=== PATIENT | female | born 1975 | race Caucasian/White ===

== ENCOUNTER 2024-12-04 18:21 | Observation (INO) | payer OTHER, SELFPAY ==
[2024-11-30 21:00] VITALS: BMI 40.1
[2024-12-04 19:35] VITALS: BP 250/129; PULSE 94; RESP 18; TEMP 36.6; O2SAT 100; BMI 39.2
[2024-12-04 22:06] VITALS: BP 229/109
[2024-12-04 22:07] VITALS: PULSE 93
--- NOTE | 2024-12-04 22:23 | ED.GENADULT ---
HPI - General Adult General Chief complaint: Hypertension Stated complaint: BP through roof here earlier this week Time Seen by Provider: 12/04/24 22:21 Source: patient, RN notes reviewed and old records reviewed Mode of arrival: Ambulatory Limitations: no limitations History of Present Illness HPI narrative: 49-year-old female with hypertension was seen on 11/30/2024 patient was admitted for hypertensive emergency please do not narcotic pain and discharged home on amlodipine 5 mg b.i.d. patient states she is having similar symptoms has not elevated blood pressure. Has been taking her amlodipine although did not have her evening dose. She states she has had shortness of breath with the exertion which she states is worse than when she came in earlier in the week. She has a little bit of a moderate headache to the back of her head. Chest pressure with exertion. No some nausea but no vomiting. No syncope. Bowel movements has been a little bit loose. No urinary symptoms. She did not note a red lump along vessel in her arm which is new since her hospitalization just adjacent to where she had her IV placed. She states not the worse headache of her life, she states she bacterial meningitis age 19 and states that was the worst headache of her life. She notes was not on any daily medications prior to this. From only has a history of and tubal ligation. Reports allergy to Vicodin. Quit tobacco on mother's day, no alcohol, no recreational drugs. Was drinking too rock breaker caffeine drinks daily and stopped this with her hospitalization. She does not have a primary care physician. Related Data Previous Rx's ?Medication ?Instructions ?Recorded amlodipine 5 mg tablet 5 mg PO BID #60 tabs 12/01/24 Allergies Allergy/AdvReac Type Severity Reaction Status Date / Time acetaminophen (From Vicodin) AdvReac Intermediate Nausea Verified 11/30/24 22:02 hydrocodone (From Vicodin) AdvReac Intermediate Nausea Verified 11/30/24 22:02 Review of Systems Review of Systems ROS Unobtainable: All systems reviewed & are unremarkable except as noted in HPI and below Patient History Social History household members: spouse Exam Narrative Exam Narrative: GEN: well nourished, well appearing female, alert and oriented x 3, patient appears to be in mild distress. HEENT: Atraumatic, pupils are equal round reactive to light, extraocular movements are intact, nares are clear, there is no conjunctival pallor. Throat is clear without any exudates, erythema, tonsillar enlargement or uvular deviation, no facial droop HEART: Regular rate and rhythm without murmur, clicks, rubs. No carotid bruits, pulses are equal in upper and lower extremities LUNGS:Lungs clear to auscultation, no wheezes, rales, crackles, chest moves symmetrically ABD:bowel sounds normal, soft, non-tender, no guarding, rebound, rigidity, no masses noted, no hepatosplenomegaly :No CVA tenderness MSCL: Non-tender, no muscle atrophy, muscles strength 5/5 upper and lower extremities, full range of motion. NEURO:CN 2-12 intact, sensation normal Initial Vital Signs Initial Vital Signs: Vital Signs Temperature 98 F 12/04/24 19:35 Pulse Rate 94 H 12/04/24 19:35 Respiratory Rate 18 12/04/24 19:35 Blood Pressure 250/129 H 12/04/24 19:35 Pulse Oximetry 100 12/04/24 19:35 Oxygen Delivery Method Room Air 12/04/24 19:35 Course Orders Ordered: ED Orders 12/04/24 22:20 BNP [NT-proBNP (BNP-Adult 18+)] Stat Complete Blood Count AUTO DIFF Stat Comprehensive Metabolic Panel Stat Lipase Stat Troponin & CK Cardiac Panel Stat 12/04/24 22:25 XR chest 1V Stat EKG-12 Lead Stat 12/04/24 22:33 CT head/brain wo con Stat 12/04/24 22:35 US periph venous up extrem rt Stat Acetaminophen (Acetaminophen 325 Mg Tablet) 650 mg PO Q6H PRN PRN Reason: Fever/Mild Pain (1-3) Hydrocodone Bitart/Acetaminophen (Hydrocodone/Acet 5/325 Tablet) 1 tab PO Q4H PRN PRN Reason: Pain, Moderate (4-6) Calcium Carbonate (Calcium Carbonate 500 Mg Tab) 1,000 mg PO Q4HR PRN PRN Reason: Dyspepsia Clonidine HCl (Clonidine 0.1 Mg Tablet) 0.2 mg PO BID JANEEN Enoxaparin Sodium (Enoxaparin 40 Mg/0.4 Ml Syringe) 40 mg SUBCUT DAILY JANEEN Furosemide (Furosemide 40 Mg/4 Ml Vial) 40 mg IV Q12HR JANEEN Hydralazine HCl (Hydralazine 20 Mg/Ml Vial) 10 mg IV Q6HR PRN PRN Reason: Hypertension Sodium Chloride (Normal Saline 0.9%) 1,000 mls @ 150 mls/hr IV CONT JANEEN Last Admin: 12/04/24 22:56 Dose: 150 mls/hr Documented By: ERIC Naloxone HCl (Naloxone 0.4 Mg/Ml Vial) 0.2 mg IV Q2MIN PRN PRN Reason: Opiate Reversal Ondansetron HCl (Ondansetron 4 Mg/2 Ml Inj) 4 mg IV Q8HR PRN PRN Reason: Nausea And Vomiting Sennosides (Sennosides 8.6 Mg Tablet) 17.2 mg PO BEDTIME [facility] Discontinued Medications Amlodipine Besylate (Amlodipine 5 Mg Tablet) 10 mg PO NOW ONE Stop: 12/04/24 22:36 Last Admin: 12/04/24 22:56 Dose: 10 mg Documented By: ERIC Vital Signs Vital signs: Vital Signs - 8 hr 12/04/24 19:35 12/04/24 22:06 12/04/24 22:07 Temperature 98 F Pulse Rate 94 H 93 H Respiratory Rate 18 Blood Pressure 250/129 H 229/109 H Pulse Oximetry 100 Oxygen Delivery Method Room Air 12/04/24 22:30 12/04/24 22:30 12/04/24 23:00 Temperature Pulse Rate 78 87 Respiratory Rate 20 21 Blood Pressure 232/102 H Pulse Oximetry 98 Oxygen Delivery Method 12/04/24 23:30 12/05/24 00:00 12/05/24 00:30 Temperature Pulse Rate 86 78 86 Respiratory Rate 25 H 22 23 Blood Pressure Pulse Oximetry 99 97 97 Oxygen Delivery Method 12/05/24 00:45 12/05/24 00:45 12/05/24 01:00 Temperature Pulse Rate 80 92 H Respiratory Rate 18 22 Blood Pressure 194/88 H Pulse Oximetry 98 96 Oxygen Delivery Method 12/05/24 01:00 Temperature Pulse Rate Respiratory Rate Blood Pressure 196/87 H Pulse Oximetry Oxygen Delivery Method Medical Decision Making Lab Data 12/04/24 22:20 12/04/24 22:20 Labs: Lab Results 12/04/24 Range/Units 22:20 WBC 8.4 (4.5-11.0) X10^3/uL RBC 5.42 H (4.0-5.2) X10^6/uL Hgb 11.5 L (12.0-16.0) g/dL Hct 35.9 L (36-46) % MCV 66.3 L (80-100) fL MCH 21.2 L (26-34) PG MCHC 31.9 (30-36) % RDW 18.9 H (11.6-14.8) % Plt Count 338 (150-400) X10^3/uL Neut % (Auto) 57.9 (50-75) % Lymph % (Auto) 30.4 (25-40) % [place] % (Auto) 6.1 (3-14) % Eos % (Auto) 4.2 H (2-4) % Baso % (Auto) 1.4 (0-2) % Neut # (Auto) 4800 (6480-1319) /uL Lymph # (Auto) 2500 (4203-9438) /uL [place] # (Auto) 500 (0-900) /uL Eos # (Auto) 400 (0-450) /uL Baso # (Auto) 100 (0-100) /uL Platelet Estimate Adequate on smear RBC Morphology See below Hypochromasia 1+ H Anisocytosis 1+ H Microcytosis 2+ H Macrocytosis 1+ H Sodium 135 L (137-145) mmol/L Potassium 4.0 (3.4-5.1) mmol/L Chloride 104 (98-107) mmol/L Carbon Dioxide 18 L (22-32) mmol/L BUN 14 (7-17) mg/dL Creatinine 0.51 L (0.52-1.04) mg/dL Estimated GFR > 60 (>60) mL/min BUN/Creatinine Ratio 27.5 H (6-22) Glucose 183 H (70-99) mg/dL Calcium 9.5 (8.4-10.2) mg/dL Total Bilirubin 0.6 (0.2-1.3) mg/dL AST 40 H (14-36) IU/L ALT 35 H (<35) IU/L Alkaline Phosphatase 95 (38-126) U/L Total Creatine Kinase 65 (30-135) U/L Troponin I < 0.012 (0.01-0.034) ng/mL NT-Pro-B Natriuret Pep 20 (<125) pg/mL Total Protein 7.6 (6.3-8.2) g/dL Albumin 4.5 (3.5-5.0) g/dL Globulin 3.1 (1.7-4.1) g/dL Albumin/Globulin Ratio 1.5 (1.0-2.8) Lipase 120 (23-300) U/L MDM Narrative Medical decision making narrative: Labs show white count 8.4 hemoglobin is 11.5 was 9.9 on 12/01/2024, microcytic platelets of 338. Coags are negative. Chemistries mild changes with CO2 18 sodium is 135 creatinine is 0.51 glucose is 183 LFTs show AST of 40 ALT of 35 bilirubin is 0.6 alk-phos is 95 lipase is 120. Troponins less than 0.012 with a BNP of less than 20. Head CT shows no acute change Chest x-ray shows no acute change Right upper extremity ultrasound, superficial venous thrombosis in the proximal basilic vein in the forearm. No findings of upper DVT. Patient had fluids and amlodipine, patient's blood pressure 194/88 on rechecked but was consistently 250 to 230s. 25% reduction would be 188/97. Call out to Dr. Ramesh [phone] for hypertensive urgency/emergency, spoke with Dr. Ramesh @ [phone] accepts for observation. We will continue with oral medication at this time hold off on nicardipine drip as she seems to be responding. Discharge Plan Departure Patient Disposition: Admitted as Observation Clinical Impression: Hypertensive urgency Admit Date/Time: 12/05/24 01:23 Admit Provider: Vinicius Ramesh
--- NOTE | 2024-12-04 22:25 | EKG_ITS ---
[place] [id number] [place] [id number] Test Date: 2024-12-05 Pat Name: Marilee Dubon Department: [facility] Room: 90A Gender: Female Motivational Speaker: JS : 1975 Requested By: Order Number: [id number] Reading MD: Farrukh Andrews Measurements Intervals [place] Rate: 78 P: 33 MS: 146 QRS: -3 QRSD: 82 T: 66 QT: 400 QTc: 456 Interpretive Statements Normal sinus rhythm Nonspecific T wave abnormality Electronically Signed On 12-07-2024 16:54:04 PDT by Farrukh Andrews
--- NOTE | 2024-12-04 22:25 | DI.RAD.S_ITS ---
PROCEDURE: XR CHEST 1V INDICATIONS: hypertension TECHNIQUE: One view of the chest was acquired. COMPARISON: [facility], CR, XR CHEST 1V, 11/30/2024, 16:24. FINDINGS: Surgical changes and devices: None. Lungs and pleura: Lungs are clear. No pleural effusions or pneumothorax. Mediastinum: Mediastinal contours appear normal. Heart size is normal. Bones and chest wall: No suspicious bony lesions. Overlying soft tissues appear unremarkable. IMPRESSION: No acute cardiopulmonary abnormality is seen. Dictated by: Foster Franklin M.D. on 12/04/2024 at 22:55 Approved by: Foster Franklin M.D. on 12/04/2024 at 22:55
[2024-12-04 22:30] VITALS: BP 232/102; PULSE 78; RESP 20
--- NOTE | 2024-12-04 22:33 | DI.CT.S_ITS ---
PROCEDURE: CT HEAD/BRAIN WO CON INDICATIONS: htn, moderate shetty TECHNIQUE: Noncontrast 4.5 mm thick angled axial sections acquired from the foramen magnum to the vertex, with coronal and sagittal reformats. For radiation dose reduction, the following was used: automated exposure control, adjustment of mA and/or kV according to patient size. COMPARISON: None. FINDINGS: Image quality: Diagnostic. CSF spaces: Basal cisterns are patent. No extra-axial fluid collections. Ventricles are normal in size and shape. Brain: No midline shift. No intracranial mass effect or hemorrhage. Stewart- white matter interface is normal. Skull and face: Calvarium and visualized facial bones are intact, without suspicious lesions. Sinuses: Visualized sinuses and mastoids are clear. IMPRESSION: No acute intracranial pathology. Dictated by: Foster Franklin M.D. on 12/04/2024 at 23:12 Approved by: Foster Franklin M.D. on 12/04/2024 at 23:13
--- NOTE | 2024-12-04 22:35 | DI.US.S_ITS ---
PROCEDURE: US PERIPH VENOUS UP EXTREM RT INDICATIONS: phlebitis RUarm, r/o dvt TECHNIQUE: Real-time imaging, as well as color and pulse Doppler interrogation, was performed of the upper extremity deep veins from the inferior neck to the antecubital fossa. COMPARISON: None. FINDINGS: The internal jugular vein, visualized portions of the subclavian vein, axillary, and brachial veins are free of intraluminal thrombus. Where physically possible, the veins are normally compressible. Color and pulse Doppler demonstrate normal intraluminal flow, with expected phasicity and pulsatility. Superficial venous thrombosis within the proximal basilic vein of the forearm. IMPRESSION: Superficial venous thrombosis within the proximal basilic vein of the forearm. No findings of upper extremity deep venous thrombosis can be seen. Dictated by: Foster Franklin M.D. on 12/05/2024 at 0:25 Approved by: Foster Franklin M.D. on 12/05/2024 at 0:26
[2024-12-04 22:38] LABS: Add Manual Diff / Slide Review NO; Hematocrit 35.9 % (36-46); Hemoglobin 11.5 g/dL (12.0-16.0); Lymphocytes Absolute Auto 2500 /uL (1100-4500); Mean Corpuscular HGB Conc 31.9 % (30-36); Mean Corpuscular Hemoglobin 21.2 PG (26-34); Mean Corpuscular Volume 66.3 fL (80-100); Platelet Count 338 X10^3/uL (150-400)
[2024-12-04 22:49] LABS: Alanine Aminotransferase 35 IU/L (<35); Albumin 4.5 g/dL (3.5-5.0); Albumin Globulin Ratio 1.5 (1.0-2.8); Alkaline Phosphatase 95 U/L (38-126); Blood Urea Nitrogen 14 mg/dL (7-17); Calcium 9.5 mg/dL (8.4-10.2); Carbon Dioxide 18 mmol/L (22-32); Chloride 104 mmol/L (98-107); Creatine Kinase 65 U/L (30-135); Estimated Glomerular Filt Rate > 60 mL/min (>60); Globulin 3.1 g/dL (1.7-4.1); Glucose 183 mg/dL (70-99); HEMOLYSIS 28 (0-50); Lipase 120 U/L (23-300); Potassium 4.0 mmol/L (3.4-5.1); Sodium 135 mmol/L (137-145); Total Protein 7.6 g/dL (6.3-8.2)
[2024-12-04] MEDS: SODIUM CHLORIDE 0.9% 1,000 ML 150 ML IV (22:56)
[2024-12-04 23:00] VITALS: PULSE 87; RESP 21; O2SAT 98
[2024-12-04 23:01] LABS: NT-proBNP (BNP-Adult 18+) 20 pg/mL (<125); Troponin I < 0.012 ng/mL (0.01-0.034)
[2024-12-04 23:24] LABS: Anisocytosis 1+; Hypochromasia 1+; Macrocytosis 1+; Microcytosis 2+
[2024-12-04 23:30] VITALS: PULSE 86; RESP 25; O2SAT 99
[2024-12-05] VITALS (42 sets, daily range): BP systolic 137–237; BP diastolic 64–129; PULSE 73–141; RESP 11–33; TEMP 36.6–37.1; O2SAT 96–99; BMI 39.2; BMI 38.6
[2024-12-05 03:47] LABS: Appearance Urine UA CLEAR; Bilirubin Urine UA NEGATIVE (NEGATIVE); Color Urine UA YELLOW; Glucose Urine UA NEGATIVE (Negative); Ketones Urine UA TRACE (NEGATIVE); Leukocyte Esterase Urine UA NEGATIVE (NEGATIVE); Nitrite Urine UA NEGATIVE (Negative); Occult Blood Urine UA NEGATIVE (Negative); Protein Urine UA NEGATIVE (Negative); Specific Gravity Urine UA <=1.005 (1.000-1.035); Urobilinogen Urine UA 0.2 E.U./dL (0.2)
[2024-12-05 03:52] LABS: UR Morphine/Opiate cutoff 300 Negative (Negative); Ur Specific Gravity Normal (Normal); Urine MDMA Negative (Negative); Urine Methamphetamines Negative (Negative); Urine Tetrahydrocannabinol Positive (Negative); Urine Tricyclic Antidepressant Negative (Negative)
[2024-12-05 04:09] LABS: pH Urine UA 6.0 (4.5-8.0)
[2024-12-05 04:10] LABS: Culture Indicated Urine Cult Not Indicated
[2024-12-05] MEDS: hydrALAZINE 20 MG/ML VIAL 10 MG IV (04:13)
--- NOTE | 2024-12-05 04:40 | PC.NURSE ---
Pt declining maintenance IVF at this time; wants to try to sleep without having to use the bathroom so frequently.
[2024-12-05 05:42] LABS: Add Manual Diff / Slide Review NO; Hematocrit 32.5 % (36-46); Hemoglobin 10.5 g/dL (12.0-16.0); Lymphocytes Absolute Auto 2000 /uL (1100-4500); Mean Corpuscular HGB Conc 32.1 % (30-36); Mean Corpuscular Hemoglobin 21.3 PG (26-34); Mean Corpuscular Volume 66.3 fL (80-100); Platelet Count 317 X10^3/uL (150-400)
--- NOTE | 2024-12-05 05:44 | PC.NURSE ---
pt ambulatory to the br, became dyspneic and tachycardic, HR in 130s. pt states this last week she has been becoming increasingly SOB with walking short distances and can feel her heart racing when she becomes SOB,
[2024-12-05 05:55] LABS: Blood Urea Nitrogen 13 mg/dL (7-17); Calcium 8.5 mg/dL (8.4-10.2); Carbon Dioxide 20 mmol/L (22-32); Chloride 106 mmol/L (98-107); Cholesterol 173 mg/dL (140-199); Estimated Glomerular Filt Rate > 60 mL/min (>60); Glucose 168 mg/dL (70-99); HDL Cholesterol 54 mg/dL (40-60); HEMOLYSIS < 15 (0-50); Hemoglobin A1C% w Est Avg Glu 7.4 % (4.0-6.0); Magnesium 1.6 mg/dL (1.6-2.3); Potassium 3.4 mmol/L (3.4-5.1); Sodium 136 mmol/L (137-145); Triglycerides 196 mg/dL (35-150)
[2024-12-05 06:04] LABS: NT-proBNP (BNP-Adult 18+) 22 pg/mL (<125)
[2024-12-05 06:17] LABS: Anisocytosis 1+; Hypochromasia 1+; Macrocytosis 1+; Microcytosis 1+
--- NOTE | 2024-12-05 06:24 | P.HP_ITS ---
History of Present Illness History of Present Illness Date Patient Seen: 12/05/24 Time Patient Seen: 04:00 Chief complaint: BP through roof here earlier this week Narrative: The pt is a 49 yo who was admitted to our hospital from -12/01 for HTN urgency and was sent home on 5mg of Norvasc. She reports she went home and slept for 20 hours and then woke up with BP of >200. She has been checking her BP every 2-4 hours at home around the clock. Patricia c/o OLIVAS, dull generalized, no focal weakness, no confused, no trouble with speech, no CP or pressure but she was very tearful when describing how she can feel the high blood pressure in my neck pulsing. She does not smoke, no ETOH, no change in supplements or diet remedies, no stress at home but she reports a 25 weight gain inthe past week. During my visit her BP was 205/93, PFSH Social History household members: spouse Meds Home Medications and Allergies Home Medications ?Medication ?Instructions ?Recorded ?Confirmed ?Type amlodipine 5 mg tablet 5 mg PO BID #60 tabs 5 Rx Allergies Allergy/AdvReac Type Severity Reaction Status Date / Time acetaminophen (From Vicodin) AdvReac Intermediate Nausea Verified 11/30/24 22:02 hydrocodone (From Vicodin) AdvReac Intermediate Nausea Verified 11/30/24 22:02 Exam Vital Signs (past 8 hours): - 12/04/24 22:30 12/04/24 22:30 12/04/24 23:00 Pulse Rate 78 87 Respiratory Rate 20 21 Blood Pressure 232/102 H Pulse Oximetry 98 12/04/24 23:30 12/05/24 00:00 12/05/24 00:30 Pulse Rate 86 78 86 Respiratory Rate 25 H 22 23 Blood Pressure Pulse Oximetry 99 97 97 12/05/24 00:45 12/05/24 00:45 12/05/24 01:00 Pulse Rate 80 92 H Respiratory Rate 18 22 Blood Pressure 194/88 H Pulse Oximetry 98 96 12/05/24 01:00 12/05/24 01:30 12/05/24 01:30 Pulse Rate 78 Respiratory Rate 17 Blood Pressure 196/87 H 185/85 H Pulse Oximetry 97 12/05/24 02:00 12/05/24 02:00 12/05/24 02:45 Pulse Rate 82 84 Respiratory Rate 22 14 Blood Pressure 192/92 H Pulse Oximetry 97 98 12/05/24 02:46 12/05/24 02:46 12/05/24 03:00 Pulse Rate 79 100 H Respiratory Rate 15 26 H Blood Pressure 205/93 H Pulse Oximetry 98 99 12/05/24 03:00 12/05/24 03:30 12/05/24 03:50 Pulse Rate 87 84 Respiratory Rate 14 11 L Blood Pressure 237/129 H Pulse Oximetry 97 98 12/05/24 03:50 12/05/24 04:00 12/05/24 04:00 Pulse Rate 77 Respiratory Rate 12 Blood Pressure 199/93 H 196/95 H Pulse Oximetry 97 12/05/24 04:13 12/05/24 04:30 12/05/24 05:00 Pulse Rate 73 118 H 105 H Respiratory Rate 20 15 Blood Pressure 196/95 H Pulse Oximetry 98 12/05/24 05:00 12/05/24 05:30 12/05/24 05:43 Pulse Rate 103 H 118 H Respiratory Rate 17 17 Blood Pressure 198/94 H Pulse Oximetry 99 99 12/05/24 05:43 Pulse Rate Respiratory Rate Blood Pressure 227/102 H Pulse Oximetry Oxygen Delivery Method Room Air Const General: cooperative, healthy appearing and comfortable [facility] Head: normal to inspection Neck Neck: normal visual inspection and no meningeal signs Resp Auscultation: clear to auscultation bilaterally Cardio Rate: regular rate Rhythm: regular rhythm GI Inspection: normal to inspection and obesity Extrem General: no clubbing, cyanosis or edema Objective Labs 12/05/24 05:33 12/05/24 05:33 Labs: Laboratory Results - last 24 hr 12/04/24 12/05/24 12/05/24 22:20 03:15 03:15 WBC 8.4 RBC 5.42 H Hgb 11.5 L Hct 35.9 L MCV 66.3 L MCH 21.2 L MCHC 31.9 RDW 18.9 H Plt Count 338 Neut % (Auto) 57.9 Lymph % (Auto) 30.4 [place] % (Auto) 6.1 Eos % (Auto) 4.2 H Baso % (Auto) 1.4 Neut # (Auto) 4800 Lymph # (Auto) 2500 [place] # (Auto) 500 Eos # (Auto) 400 Baso # (Auto) 100 Platelet Estimate Adequate on smear RBC Morphology See below Hypochromasia 1+ H Anisocytosis 1+ H Microcytosis 2+ H Macrocytosis 1+ H Sodium 135 L Potassium 4.0 Chloride 104 Carbon Dioxide 18 L BUN 14 Creatinine 0.51 L Estimated GFR > 60 BUN/Creatinine Ratio 27.5 H Glucose 183 H Hemoglobin A1c Calcium 9.5 Magnesium Total Bilirubin 0.6 AST 40 H ALT 35 H Alkaline Phosphatase 95 Total Creatine Kinase 65 Troponin I < 0.012 NT-Pro-B Natriuret Pep 20 Total Protein 7.6 Albumin 4.5 Globulin 3.1 Albumin/Globulin Ratio 1.5 Triglycerides Cholesterol LDL Cholesterol, Calc HDL Cholesterol Lipase 120 Urine Color Yellow Urine Appearance Clear Urine pH 6.0 Normal Ur Specific [place] <=1.005 Urine Protein Negative Urine Glucose (UA) Negative Urine Ketones Trace H Urine Occult Blood Negative Urine Nitrate Negative Urine Bilirubin Negative Urine Urobilinogen 0.2 Ur Leukocyte Esterase Negative Urine RBC None seen Urine WBC None seen Ur Squamous Epith Cells 0-1 /hpf Urine Bacteria None seen Ur Culture Indicated? Cult not indicated Vol Urine Centrifuged 10ml (spun) U Opiates 300ng/mL cut Negative Ur Oxycodone Screen Negative Urine Methadone Screen Negative Ur Barbiturates Screen Negative U Tricyclic Antidepress Negative Ur Phencyclidine Scrn Negative Ur Amphetamines Screen Negative U Methamphetamines Scrn Negative Ur MDMA Scrn (Ecstasy) Negative U Benzodiazepines Scrn Negative Urine Cocaine Screen Negative U Marijuana (THC) Screen Positive H Urine Specific [place] Normal Ur Creatinine Normal 12/05/24 05:33 WBC 6.8 RBC 4.91 Hgb 10.5 L Hct 32.5 L MCV 66.3 L MCH 21.3 L MCHC 32.1 RDW 18.5 H Plt Count 317 Neut % (Auto) 58.4 Lymph % (Auto) 29.7 [place] % (Auto) 6.4 Eos % (Auto) 4.5 H Baso % (Auto) 1.0 Neut # (Auto) 4000 Lymph # (Auto) 2000 [place] # (Auto) 400 Eos # (Auto) 300 Baso # (Auto) 100 Platelet Estimate Adequate on smear RBC Morphology See below Hypochromasia 1+ H Anisocytosis 1+ H Microcytosis 1+ H Macrocytosis 1+ H Sodium 136 L Potassium 3.4 Chloride 106 Carbon Dioxide 20 L BUN 13 Creatinine 0.46 L Estimated GFR > 60 BUN/Creatinine Ratio 28.3 H Glucose 168 H Hemoglobin A1c 7.4 H Calcium 8.5 Magnesium 1.6 Total Bilirubin AST ALT Alkaline Phosphatase Total Creatine Kinase Troponin I NT-Pro-B Natriuret Pep 22 Total Protein Albumin Globulin Albumin/Globulin Ratio Triglycerides 196 H Cholesterol 173 LDL Cholesterol, Calc 80 HDL Cholesterol 54 Lipase Urine Color Urine Appearance Urine pH Ur Specific [place] Urine Protein Urine Glucose (UA) Urine Ketones Urine Occult Blood Urine Nitrate Urine Bilirubin Urine Urobilinogen Ur Leukocyte Esterase Urine RBC Urine WBC Ur Squamous Epith Cells Urine Bacteria Ur Culture Indicated? Vol Urine Centrifuged U Opiates 300ng/mL cut Ur Oxycodone Screen Urine Methadone Screen Ur Barbiturates Screen U Tricyclic Antidepress Ur Phencyclidine Scrn Ur Amphetamines Screen U Methamphetamines Scrn Ur MDMA Scrn (Ecstasy) U Benzodiazepines Scrn Urine Cocaine Screen U Marijuana (THC) Screen Urine Specific [place] Ur Creatinine Assessment & Plan Assessment & Plan narrative: I have spoken with the ER provider regarding the pt's symtpoms, labs, and imaging and agree with the decision for admission. Will admit on telemetry, repeat labs in am. I have reviewed [facility] pt's labs showing normal electrolytes, hgb of 10, normal Cr. 1. HTN urgency- monitor on tele, l have started the pt on clonidine 0.2mg BID, lasix 40 mg daily, continued Norvasc 10 mg now, hydralazine 10 mg prn, echo ordered, checking CRP, A1c, could check US renal arteries to r/out secondary cause of HTN, Ativan prn, Time-Based Coding :: [TOTAL MINUTES] spent with patient and on the chart (including review of chart, obtaining history, exam, reviewing outside data, placing orders, documenting exam and treatment plan, and counseling patient) on [DATE].
[2024-12-05 06:54] LABS: TSH w/ Reflex to FT4 3.25 uIU/mL (0.47-4.68)
[2024-12-05 08:31] LABS: NT-proBNP (BNP-Adult 18+) 28 pg/mL (<125); Troponin I < 0.012 ng/mL (0.01-0.034)
--- NOTE | 2024-12-05 08:31 | DI.CT.S_ITS ---
PROCEDURE: CT ANGIO CHEST PE PROTOCOL INDICATIONS: Shortness of breath. severe htn, rule out renal artery stenosis TECHNIQUE: After the administration of intravenous contrast, 2 mm thick sections acquired from the pulmonary apices to the posterior costophrenic angles. 3-dimensional maximum intensity projection (MIP) coronal and sagittal reformats were then acquired through the thorax. For radiation dose reduction, the following was used: automated exposure control, adjustment of mA and/or kV according to patient size. COMPARISON: [facility], CT, CT ANGIO ABDOMEN, 12/05/2024, 9:38. [facility], US, US PERIPH VENOUS UP EXTREM RT, 12/04/2024, 23:39. [facility], CR, XR CHEST 1V, 12/04/2024, 22:27. FINDINGS: Image quality: Limited by bolus timing. Pulmonary arteries: The bolus of the contrast injection is suboptimal. The main pulmonary artery measures 190 Hounsfield units. Pulmonary artery densities are greater than 250 Hounsfield units are considered to be ideal for evaluation of pulmonary embolism. However, no large or central pulmonary emboli are seen on these images. No pulmonary emboli are seen more distally, although sensitivity for detection of such is limited on this study. Lower Neck: No enlarged lymph nodes. Thyroid: No thyroid nodules which require sonographic follow up, per consensus guidelines. Axillae: No enlarged lymph nodes. Chest Wall: Unremarkable. Bones: Age-appropriate bony degenerative changes are seen. Minimal levoconvex scoliotic curvature is seen. Lungs and Pleura: No pneumothorax or pleural effusions. No consolidation or suspicious nodules. Heart: Heart size is normal. No pericardial effusion. Thoracic Vessels: No aortic aneurysm. Mediastinum and [place]: No enlarged lymph nodes. Esophagus: No wall thickening. There is a small hiatal hernia. Upper Abdomen: Please see the accompanying abdomen CT report. IMPRESSION: No large or central pulmonary embolism can be seen. No acute cardiopulmonary process. Additional findings: Small hiatal hernia Dictated by: Darshan Willoughby M.D. on 12/05/2024 at 8:52 Approved by: Darshan Willoughby M.D. on 12/05/2024 at 8:55
--- NOTE | 2024-12-05 08:31 | DI.CT.S_ITS ---
PROCEDURE: CT ANGIO ABDOMEN INDICATIONS: severe htn, please evaluate for renal artery stenosis TECHNIQUE: After the administration of intravenous contrast, 2.5 mm sections acquired from the diaphragm to the iliac crests. 10 mm maximum intensity projection (MIP) coronal and sagittal reformats were then performed. For radiation dose reduction, the following was used: automated exposure control. COMPARISON: [facility], US, US PERIPH VENOUS UP EXTREM RT, 12/04/2024, 23:39. [facility], CT, CT ANGIO CHEST PE PROTOCOL, 12/05/2024, 9:21. FINDINGS: Image quality: Diagnostic. No dilated loops of small bowel are seen. Mesenteric arteries: Patent without hemodynamically significant stenosis. Renal arteries: Patent without hemodynamically significant stenosis. Of the a small accessory left renal artery branch can be seen, as on series 8, image 92. Lower chest: Please see the accompanying chest CT report. ABDOMEN: Liver: No solid mass. Diffuse fatty liver infiltration is noted. Gallbladder: No radiopaque gallstones or wall thickening. Biliary ducts: No biliary dilation. Pancreas: No ductal dilation. Spleen: Size is within normal limits. Adrenal Glands: No adrenal nodules. Kidneys and Ureters: No hydronephrosis. No solid mass. No complex renal cystic lesion which requires follow up. Stomach and Bowel: Normal colonic caliber, without significant wall thickening. No dilated loops of small bowel are seen. Peritoneum: No abnormal intraperitoneal fluid. No free air. Ventral Wall: No hernia. Abdominal Nodes: No retroperitoneal or mesenteric adenopathy by size criteria. Vessels: Aorta, as above. Normal IVC. PELVIS: Pelvic Organs: Unremarkable. Bladder: Unremarkable. Pelvic Nodes: No enlarged lymph nodes. Miscellaneous: No inguinal hernias are seen. Bones: No aggressive osseous abnormality. Age-appropriate bony degenerative changes are seen. IMPRESSION: Negative for renal artery stenosis. Additional findings: Fatty liver infiltration Dictated by: Darshan Willoughby M.D. on 12/05/2024 at 8:55 Approved by: Darshan Willoughby M.D. on 12/05/2024 at 8:57
[2024-12-05] MEDS: LABETALOL 20 MG/4 ML SYRINGE 10 MG IV (08:53)
--- NOTE | 2024-12-05 08:53 | PC.NURSE ---
Pt ambulated to bathroom independently. Pt tachy with HR in 150s and SOB after ambulation. Pt to use bedside commode for elimination. Denies cp but states that she feels pressure in the back of her head when she gets up to move around. A&Ox4.
--- NOTE | 2024-12-05 09:31 | P.HP_ITS ---
History of Present Illness History of Present Illness Date Patient Seen: 12/05/24 Time Patient Seen: 08:18 Chief complaint: BP through roof here earlier this week Narrative: Night hospitalist note: The pt is a 49 yo who was admitted to our hospital from -12/01 for HTN urgency and was sent home on 5mg of Norvasc. She reports she went home and slept for 20 hours and then woke up with BP of >200. She has been checking her BP every 2-4 hours at home around the clock. Patricia c/o OLIVAS, dull generalized, no focal weakness, no confused, no trouble with speech, no CP or pressure but she was very tearful when describing how she can feel the high blood pressure in my neck pulsing. She does not smoke, no ETOH, no change in supplements or diet remedies, no stress at home but she reports a 25 weight gain in the past week. During my visit her BP was 205/93. Interval history: The patient was admitted to this hospital to 12/01/2024 for severe hypertension. She states that this started about 1 month ago, and previously she had not been known to have high blood pressure. She does note that her father at age 50 of cancer in her mother at 54 of stroke. She has a half sister with lupus and Castleman's disease. She reports shortness of breath with dyspnea with minimal exertion, noting that she did not have in the past couple of months when she went hiking without limitation. She feels palpitations associated with the high blood pressure, particularly when she gets up and walks. [facility] Social History household members: spouse Meds Home Medications and Allergies Home Medications ?Medication ?Instructions ?Recorded ?Confirmed ?Type amlodipine 5 mg tablet 5 mg PO BID #60 tabs 5 Rx Allergies Allergy/AdvReac Type Severity Reaction Status Date / Time acetaminophen (From Vicodin) AdvReac Intermediate Nausea Verified 11/30/24 22:02 hydrocodone (From Vicodin) AdvReac Intermediate Nausea Verified 11/30/24 22:02 Review of Systems Review of Systems ROS: Yes All systems reviewed with the patient and are negative except as otherwise documented Exam Vital Signs (past 8 hours): - 12/05/24 02:00 12/05/24 02:00 12/05/24 02:45 Pulse Rate 82 84 Respiratory Rate 22 14 Blood Pressure 192/92 H Pulse Oximetry 97 98 12/05/24 02:46 12/05/24 02:46 12/05/24 03:00 Pulse Rate 79 100 H Respiratory Rate 15 26 H Blood Pressure 205/93 H Pulse Oximetry 98 99 12/05/24 03:00 12/05/24 03:30 12/05/24 03:50 Pulse Rate 87 84 Respiratory Rate 14 11 L Blood Pressure 237/129 H Pulse Oximetry 97 98 12/05/24 03:50 12/05/24 04:00 12/05/24 04:00 Pulse Rate 77 Respiratory Rate 12 Blood Pressure 199/93 H 196/95 H Pulse Oximetry 97 12/05/24 04:13 12/05/24 04:30 12/05/24 05:00 Pulse Rate 73 118 H 105 H Respiratory Rate 20 15 Blood Pressure 196/95 H Pulse Oximetry 98 12/05/24 05:00 12/05/24 05:30 12/05/24 05:43 Pulse Rate 103 H 118 H Respiratory Rate 17 17 Blood Pressure 198/94 H Pulse Oximetry 99 99 12/05/24 05:43 12/05/24 07:03 12/05/24 07:30 Pulse Rate 141 H 102 H Respiratory Rate 33 H 12 Blood Pressure 227/102 H Pulse Oximetry 98 12/05/24 07:44 12/05/24 07:44 12/05/24 08:00 Pulse Rate 105 H Respiratory Rate 15 Blood Pressure 178/77 H 174/83 H Pulse Oximetry 98 12/05/24 08:00 12/05/24 08:53 12/05/24 08:59 Pulse Rate 102 H 121 H 121 H Respiratory Rate 15 Blood Pressure 221/102 H 221/102 H Pulse Oximetry 98 Oxygen Delivery Method Room Air Narrative Exam Narrative: GENERAL: This is a pleasant, obese female patient, appears mildly anxious. HEAD: Atraumatic. Normocephalic. No temporal or scalp tenderness. EYES: Pupils equal round and reactive. Extraocular motions intact. No scleral icterus. No injection or drainage. ENT: Mucous membranes pink and moist. NECK: Trachea midline. No JVD, bruits or lymphadenopathy. Supple, nontender, no meningeal signs. CARDIOVASCULAR: Tachycardic regular rhythm without murmurs, gallops, or rubs. RESPIRATORY: Clear to auscultation. GASTROINTESTINAL: Abdomen soft, non-tender, nondistended. EXTREMITIES: No clubbing, cyanosis, or edema. BACK: Nontender without deformity or crepitance. No flank tenderness. NEUROLOGIC: Alert, oriented, speech fluent, full upper and lower motor strength, no focal deficits evident. DERMATOLOGIC: No rashes or skin lesions. Objective ECG Impression: EKG 12/05/2024: Normal sinus rhythm at 78bpm, no ischemic changes, nonspecific T flattening laterally Imaging Echocardiogram 11/30/2024:: Radiologist's impression: The ejection fraction is estimated to be 70-75%. There is mild aortic regurgitation. There is trace tricuspid regurgitation. The dimensions of the ascending aorta are normal. Head CT 12/04/2024:: Radiologist's impression: No acute intracranial pathology. Chest xray 12/04/2024:: Radiologist's impression: No acute cardiopulmonary abnormality is seen. Right upper extremity doppler US 12/04/2024:: Radiologist's impression: Superficial venous thrombosis within the proximal basilic vein of the forearm. No findings of upper extremity deep venous thrombosis can be seen. Labs 12/05/24 05:33 12/05/24 05:33 Labs: Laboratory Results - last 24 hr 12/04/24 12/05/24 12/05/24 22:20 03:15 03:15 WBC 8.4 RBC 5.42 H Hgb 11.5 L Hct 35.9 L MCV 66.3 L MCH 21.2 L MCHC 31.9 RDW 18.9 H Plt Count 338 Neut % (Auto) 57.9 Lymph % (Auto) 30.4 [place] % (Auto) 6.1 Eos % (Auto) 4.2 H Baso % (Auto) 1.4 Neut # (Auto) 4800 Lymph # (Auto) 2500 [place] # (Auto) 500 Eos # (Auto) 400 Baso # (Auto) 100 Platelet Estimate Adequate on smear RBC Morphology See below Hypochromasia 1+ H Anisocytosis 1+ H Microcytosis 2+ H Macrocytosis 1+ H Sodium 135 L Potassium 4.0 Chloride 104 Carbon Dioxide 18 L BUN 14 Creatinine 0.51 L Estimated GFR > 60 BUN/Creatinine Ratio 27.5 H Glucose 183 H Hemoglobin A1c Calcium 9.5 Magnesium Total Bilirubin 0.6 AST 40 H ALT 35 H Alkaline Phosphatase 95 Total Creatine Kinase 65 Troponin I < 0.012 NT-Pro-B Natriuret Pep 20 Total Protein 7.6 Albumin 4.5 Globulin 3.1 Albumin/Globulin Ratio 1.5 Triglycerides Cholesterol LDL Cholesterol, Calc HDL Cholesterol Lipase 120 TSH Urine Color Yellow Urine Appearance Clear Urine pH 6.0 Normal Ur Specific [place] <=1.005 Urine Protein Negative Urine Glucose (UA) Negative Urine Ketones Trace H Urine Occult Blood Negative Urine Nitrate Negative Urine Bilirubin Negative Urine Urobilinogen 0.2 Ur Leukocyte Esterase Negative Urine RBC None seen Urine WBC None seen Ur Squamous Epith Cells 0-1 /hpf Urine Bacteria None seen Ur Culture Indicated? Cult not indicated Vol Urine Centrifuged 10ml (spun) U Opiates 300ng/mL cut Negative Ur Oxycodone Screen Negative Urine Methadone Screen Negative Ur Barbiturates Screen Negative U Tricyclic Antidepress Negative Ur Phencyclidine Scrn Negative Ur Amphetamines Screen Negative U Methamphetamines Scrn Negative Ur MDMA Scrn (Ecstasy) Negative U Benzodiazepines Scrn Negative Urine Cocaine Screen Negative U Marijuana (THC) Screen Positive H Urine Specific [place] Normal Ur Creatinine Normal 12/05/24 12/05/24 05:33 08:03 WBC 6.8 RBC 4.91 Hgb 10.5 L Hct 32.5 L MCV 66.3 L MCH 21.3 L MCHC 32.1 RDW 18.5 H Plt Count 317 Neut % (Auto) 58.4 Lymph % (Auto) 29.7 [place] % (Auto) 6.4 Eos % (Auto) 4.5 H Baso % (Auto) 1.0 Neut # (Auto) 4000 Lymph # (Auto) 2000 [place] # (Auto) 400 Eos # (Auto) 300 Baso # (Auto) 100 Platelet Estimate Adequate on smear RBC Morphology See below Hypochromasia 1+ H Anisocytosis 1+ H Microcytosis 1+ H Macrocytosis 1+ H Sodium 136 L Potassium 3.4 Chloride 106 Carbon Dioxide 20 L BUN 13 Creatinine 0.46 L Estimated GFR > 60 BUN/Creatinine Ratio 28.3 H Glucose 168 H Hemoglobin A1c 7.4 H Calcium 8.5 Magnesium 1.6 Total Bilirubin AST ALT Alkaline Phosphatase Total Creatine Kinase Troponin I < 0.012 NT-Pro-B Natriuret Pep 22 28 Total Protein Albumin Globulin Albumin/Globulin Ratio Triglycerides 196 H Cholesterol 173 LDL Cholesterol, Calc 80 HDL Cholesterol 54 Lipase TSH 3.25 D Urine Color Urine Appearance Urine pH Ur Specific [place] Urine Protein Urine Glucose (UA) Urine Ketones Urine Occult Blood Urine Nitrate Urine Bilirubin Urine Urobilinogen Ur Leukocyte Esterase Urine RBC Urine WBC Ur Squamous Epith Cells Urine Bacteria Ur Culture Indicated? Vol Urine Centrifuged U Opiates 300ng/mL cut Ur Oxycodone Screen Urine Methadone Screen Ur Barbiturates Screen U Tricyclic Antidepress Ur Phencyclidine Scrn Ur Amphetamines Screen U Methamphetamines Scrn Ur MDMA Scrn (Ecstasy) U Benzodiazepines Scrn Urine Cocaine Screen U Marijuana (THC) Screen Urine Specific [place] Ur Creatinine Assessment & Plan Assessment & Plan narrative: 1. Hypertensive urgency, new onset . Rule out secondary causes , e.g., renal artery stenosis, hypercortisolism, pheochromocytoma. 2. Tachycardia . Rule out pheochromocytoma. 3. Right brachiocephalic superficial venous thrombosis. Given tachycardia and dyspnea, rule out pulmonary embolism. 4. Microcytic anemia . Etiology unclear. Evaluate a 5. Diabetes mellitus, type 2, new diagnosis with hemoglobin A1c 7.4%. Rule out hypercortisolism. 5. Severe obesity Plan: * admit to observation * telemetry * continue clonidine 0.2mg BID * continue furosemide 40 mg daily * continue amlodipine 10 mg * hydralazine 10 mg prn SBP > 180 * labetolol prn HR > 110 * CTA chest rule out PE * CTA renal arteries rule out renal artery stenosis * 24 hour urine for VMA, metanephrines and urinary free cortisol * Plasma renin/ aldosterone ratio * Iron, ferritin, serial CBC, hemoccults * Lorazepam as needed. DVT prophylaxis: Subcutaneous Lovenox Code status: Full code. Her is her surrogate decision maker I[employer] PROFEE Ripshe[employer] Operator Document charge(s): Yes Charge Codes Initial inpatient/observation care: [id number]
[2024-12-05 09:56] LABS: HEMOLYSIS < 15 (0-50); Iron 40 ug/dL (37-170)
[2024-12-05] MEDS: ENOXAPARIN 40 MG/0.4 ML SYRINGE SUBCUT (09:58)
--- NOTE | 2024-12-05 09:59 | EKG_ITS ---
[address] [address] [place] [address] Test Date: 2024-12-05 Pat Name: Marilee Dubon Department: [facility] Room: 90A Gender: Female Director Regulatory Agency: [employer] : 1975 Requested By: Order Number: [id number] Reading MD: Farrukh Andrews Measurements Intervals Archer Rate: 104 P: 54 KS: 152 QRS: -3 QRSD: 80 T: 76 QT: 372 QTc: 489 Interpretive Statements Sinus tachycardia Nonspecific T wave abnormality Electronically Signed On 12-07-2024 16:55:07 PDT by Farrukh Andrews
[2024-12-05 10:07] LABS: Percent Iron Saturation 9 % (15-50); Total Iron Binding Capacity 467 ug/dL (265-497); Transferrin 387 mg/dL (206-381)
[2024-12-05 10:14] LABS: Vitamin D 25 Hydroxy (D3) 27.8 ng/mL (30.0-100.0)
[2024-12-05 10:35] LABS: Ferritin 7 ng/mL (11-264)
[2024-12-05 10:50] LABS: Vitamin B12 Reflex MMA if <400 475 pg/mL (239-931)
--- NOTE | 2024-12-05 11:15 | PC.NURSE ---
Pt up to [facility]. Explained 24 hr urine collection. Understands.
[2024-12-05] MEDS: FUROSEMIDE 40 MG/4 ML VIAL IV (12:26)
[2024-12-05] MEDS: SODIUM CHLORIDE 0.9% FLUSH 10 ML IV (20:18)
[2024-12-06] VITALS: BP 108/57; PULSE 70; RESP 16; TEMP 36.4; O2SAT 96
[2024-12-06] MEDS: FUROSEMIDE 40 MG/4 ML VIAL IV (00:22)
[2024-12-06 05:31] VITALS: BP 152/67; PULSE 75; RESP 16; TEMP 36.6; O2SAT 99
[2024-12-06 05:37] LABS: Add Manual Diff / Slide Review NO; Hematocrit 32.1 % (36-46); Hemoglobin 10.3 g/dL (12.0-16.0); Lymphocytes Absolute Auto 2300 /uL (1100-4500); Mean Corpuscular HGB Conc 32.3 % (30-36); Mean Corpuscular Hemoglobin 21.5 PG (26-34); Mean Corpuscular Volume 66.6 fL (80-100); Platelet Count 298 X10^3/uL (150-400)
[2024-12-06 05:57] LABS: Blood Urea Nitrogen 15 mg/dL (7-17); Calcium 8.7 mg/dL (8.4-10.2); Carbon Dioxide 23 mmol/L (22-32); Chloride 103 mmol/L (98-107); Estimated Glomerular Filt Rate > 60 mL/min (>60); Glucose 146 mg/dL (70-99); HEMOLYSIS < 15 (0-50); Potassium 3.5 mmol/L (3.4-5.1); Sodium 136 mmol/L (137-145)
[2024-12-06 06:36] LABS: Anisocytosis 1+; Hypochromasia 1+; Macrocytosis 1+; Microcytosis 1+
[2024-12-06 07:00] VITALS: O2SAT 98
[2024-12-06 08:28] VITALS: BP 152/67; PULSE 108
[2024-12-06] MEDS: ENOXAPARIN 40 MG/0.4 ML SYRINGE SUBCUT (08:28)
[2024-12-06 10:30] VITALS: BP 119/56; PULSE 78; RESP 16; TEMP 36.6; O2SAT 98
[2024-12-06 10:54] VITALS: BP 176/105; PULSE 97; RESP 16; TEMP 36.6; O2SAT 96
--- NOTE | 2024-12-06 11:38 | PM.DS.IH.1 ---
History of Present Illness History of Present Illness Date Patient Seen: 12/06/24 Chief complaint: BP through roof here earlier this week Narrative: The pt is a 49 yo who was admitted to our hospital from -12/01 for HTN urgency and was sent home on 5mg of Norvasc. She reports she went home and slept for 20 hours and then woke up with BP of >200. She has been checking her BP every 2-4 hours at home around the clock. Patricia c/o OLIVAS, dull generalized, no focal weakness, no confused, no trouble with speech, no CP or pressure but she was very tearful when describing how she can feel the high blood pressure in my neck pulsing. She does not smoke, no ETOH, no change in supplements or diet remedies, no stress at home but she reports a 25 weight gain in the past week. During my visit her BP was 205/93. The patient was admitted to this hospital to 12/01/2024 for severe hypertension. She states that this started about 1 month ago, and previously she had not been known to have high blood pressure. She does note that her father at age 50 of cancer in her mother at 54 of stroke. She has a half sister with lupus and Castleman's disease. She reports shortness of breath with dyspnea with minimal exertion, noting that she did not have in the past couple of months when she went hiking without limitation. She feels palpitations associated with the high blood pressure, particularly when she gets up and walks. Discharge Providers Provider Date of admission: 12/05/24 01:23 Discharge Date: 12/06/24 Discharge provider: Balbir Bell MD Summary Hospital Course Discharge Diagnosis: 1. Hypertensive urgency, new onset. Rule out secondary causes , e.g., renal artery stenosis, hypercortisolism, pheochromocytoma. 2. Tachycardia. Rule out pheochromocytoma. 3. Right brachiocephalic superficial venous thrombosis. 4. Microcytic anemia due to menorrhagia. 5. Diabetes mellitus, type 2, new diagnosis with hemoglobin A1c 7.4%. Rule out hypercortisolism. 5. Severe obesity Hospital Course: The patient was admitted and administered IV furosemide, amlodipine increased to 10 mg daily, clonidine 0.2 mg twice daily, and studies obtained to rule out secondary causes as detailed above. a 24 hour urine collection for VMA, metanephrines and urinary free cortisol was obtained to rule out pheochromocytoma and Rosa's disease. 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 She was started on carvedilol 3.125 mg twice daily after the 24 hour collection was obtained. She will need follow-up of her 24 hour urine collection and possible specialty consultation and tertiary referral to endocrinology. Case management is assisting with coordination of a primary care provider in the community for close followup. Status at Discharge Cognitive/behavioral status at discharge: oriented Functional status at discharge: independent ambulation Overall status at discharge: patient is progressing back to baseline Time Spent with Patient Time spent: Greater than 30 minutes Exam Vital Signs (past 8 hours): - 12/06/24 05:31 12/06/24 07:00 12/06/24 07:00 Temperature 97.8 F Pulse Rate 75 Respiratory Rate 16 Blood Pressure 152/67 H Pulse Oximetry 99 98 Oxygen Delivery Method Room Air Room Air Oxygen Flow Rate 0 12/06/24 08:28 12/06/24 10:30 12/06/24 10:54 Temperature 97.8 F 97.8 F Pulse Rate 108 H 78 97 H Respiratory Rate 16 16 Blood Pressure 152/67 H 119/56 L 176/105 H Pulse Oximetry 98 96 Oxygen Delivery Method Oxygen Flow Rate 0 0 Oxygen Delivery Method Room Air Oxygen Flow Rate 0 Narrative Exam Narrative: GENERAL: This is a pleasant, obese female patient, appears mildly anxious. EYES: Pupils equal round and reactive. Extraocular motions intact. No scleral icterus. No injection or drainage. ENT: Mucous membranes pink and moist. NECK: Trachea midline. No JVD, bruits or lymphadenopathy. Supple, nontender, no meningeal signs. CARDIOVASCULAR: Tachycardic regular rhythm without murmurs, gallops, or rubs. RESPIRATORY: Clear to auscultation. GASTROINTESTINAL: Abdomen soft, non-tender, nondistended. EXTREMITIES: No clubbing, cyanosis, or edema. NEUROLOGIC: Alert, oriented, speech fluent, full upper and lower motor strength, no focal deficits evident. DERMATOLOGIC: No rashes or skin lesions. Objective ECG Impression: EKG 12/05/2024: Normal sinus rhythm at 78bpm, no ischemic changes, nonspecific T flattening laterally Imaging Echocardiogram 11/30/2024:: Radiologist's impression: The ejection fraction is estimated to be 70-75%. There is mild aortic regurgitation. There is trace tricuspid regurgitation. The dimensions of the ascending aorta are normal. Head CT 12/04/2024:: Radiologist's impression: No acute intracranial pathology. Chest xray 12/04/2024:: Radiologist's impression: No acute cardiopulmonary abnormality is seen. Right upper extremity doppler US 12/04/2024:: Radiologist's impression: Superficial venous thrombosis within the proximal basilic vein of the forearm. No findings of upper extremity deep venous thrombosis can be seen. Abdomen-pelvis CTA 12/05/2024:: Radiologist's impression: Negative for renal artery stenosis. Additional findings: Fatty liver infiltration Chest CTA 12/05/2024:: Radiologist's impression: No large or central pulmonary embolism can be seen. No acute cardiopulmonary process. Additional findings: Small hiatal hernia Labs 12/06/24 04:33 12/06/24 04:33 Labs: Laboratory Results - last 24 hr 12/06/24 04:33 WBC 6.7 RBC 4.81 Hgb 10.3 L Hct 32.1 L MCV 66.6 L MCH 21.5 L MCHC 32.3 RDW 18.7 H Plt Count 298 Neut % (Auto) 54.5 Lymph % (Auto) 34.4 [place] % (Auto) 6.5 Eos % (Auto) 4.3 H Baso % (Auto) 0.3 Neut # (Auto) 3600 Lymph # (Auto) 2300 [place] # (Auto) 400 Eos # (Auto) 300 Baso # (Auto) 0 Platelet Estimate Adequate on smear RBC Morphology See below Hypochromasia 1+ H Anisocytosis 1+ H Microcytosis 1+ H Macrocytosis 1+ H Sodium 136 L Potassium 3.5 Chloride 103 Carbon Dioxide 23 BUN 15 Creatinine 0.64 Estimated GFR > 60 BUN/Creatinine Ratio 23.4 H Glucose 146 H Calcium 8.7 PFSH Social History household members: spouse Smoking Status: Former smoker alcohol intake: never Discharge Plan Discharge Plan Patient Disposition: Home Provider Discharge Comment: Followup with PCP 1 week Discharge orders & Medications Prescriptions: New amlodipine 5 mg Tablet 10 mg PO DAILY Qty: 30 0RF carvedilol 3.125 mg tablet 3.125 mg PO BID Qty: 60 0RF Rx Instructions: must administer with a meal/food lorazepam 0.5 mg Tablet 0.5 mg PO TID PRN (Reason: Anxiety) Qty: 20 0RF clonidine HCl 0.1 mg Tablet 0.2 mg PO BID Qty: 0 0RF Discontinued amlodipine 5 mg Tablet 5 mg PO BID Qty: 60 0RF Diet/Activity/Treatments Diet: Carb-consistent/Diabetic Skin/Wound/Dressing Care Report to your healthcare provider any signs of infection, such as:: chills, fever and night sweats Visit Report/Discharge Packet Stand Alone Forms: Patient Portal/API, Stroke Signs & Symptoms Discharge Data Attending Provider: Vinicius Ramesh Admit Date/Time: 12/05/24 01:23 Quality VTE Deep Vein Thrombosis/Pulmonary Embolism Present on Admission: No MIPS - Admit I confirm the patient?s Advance Care Plan is present, Code status is documented, Surrogate decision maker is in patient?s record [If Yes, STOP here]: Yes [facility] - Meds 'Current medications' to include all prescriptions, [id number] products, herbals, cannabis/cannabidiol products, and vitamin/mineral/dietary (nutritional) supplements. I have utilized all available resources to obtain, update, or review the patient?s current medications. [If Yes, STOP here]: Yes MIPS - DC The patient has a history of heart transplant or Left Ventricular Assist Device (LVAD). If yes, STOP here.: No The patient has current or prior documentation of left ventricular ejection fraction (LVEF) less than or equal to 40%, or moderate or severely depressed left ventricular systolic function.: No A. The patient was prescribed or already taking an Angiotensin-Converting Enzyme (LISA) Inhibitor, or Angiotensin Receptor Surendra (ARB).: No B. The patient was prescribed or already taking a beta-surendra. [If Yes to Both A & B, STOP here]: No Patient not prescribed/taking LISA or ARB, no reason given.: No Patient not prescribed/taking beta-surendra, no reason given.: No PROFEE Charge Codes Discharge inpatient/observation: [id number]
--- NOTE | 2024-12-06 12:08 | CM.DPNOTE ---
DC Note Patient has been discharged home today by Dr Bell. Provider requests patient be referred to [facility] in order to establish with a PCP. Patient is indp and active, lives with spouse in [place]; agreeable to referral to [facility] for PCP. [email or web address] msg sent to the RN transitions group requesting follow up w/ patient to discuss scheduling with a new provider. Plan: Discharge home w/spouse; spouse to transport. No further needs from this SW team. JW
[2024-12-09 12:39] LABS: Cortisol Fr ug/24hr urine 66 ug/24 hr (6-42); Cortisol, Free, Urine 15 ug/L (Undefined)
[2024-12-10 17:36] LABS: Aldosterone/Renin Activity Rat 1.0 (.); Plama Renin, LC/MS/MS 5.7 ng/mL/hr (.)
== END 2024-12-06 12:05 | disposition home or self-care (01) ==
LOC: ED 12-05 01:03 → AC 12-05 01:23 → ICU 12-05 10:58
PROVIDERS: Internal Medicine; Admitting Provider Internal Medicine; Emergency Provider Emergency Medicine; Visit Provider Internal Medicine
DX: I16.1 Hypertensive emergency (principal); R06.02 Shortness of breath; R51.9 Headache, unspecified; Z87.891 Personal history of nicotine dependence; E11.9 Type 2 diabetes mellitus without complications; D50.9 Iron deficiency anemia, unspecified; I82.611 Acute embolism and thrombosis of superficial veins of right upper extremity; R00.0 Tachycardia, unspecified; Z82.3 Family history of stroke; E66.01 Morbid (severe) obesity due to excess calories; Z68.38 Body mass index [BMI] 38.0-38.9, adult
CPT/HCPCS: 36415; 70450; 71045; 71275; 74175; 80048; 80053; 80061; 80305; 81001; 81003; 82088; 82306; 82530; 82550; 82607; 82728; 83036; 83540; 83550; 83690; 83735; 83835; 83880; 84244; 84443; 84484; 84585; 85025; 93005; 93971; 96361; 96372; 96374; 96375; 96376; 99284; G0378; J0360; J1650; J1938; Q9967

== ENCOUNTER → 2024-12-23 07:40 | Outpatient (CLI) | payer OTHER, SELFPAY ==
[2024-12-05 12:08] VITALS: BMI 38.6
== END ==
LOC: CAR 07:41
PROVIDERS: PCP Family Medicine; Referring Provider Family Medicine; Visit Provider Family Medicine
DX: E13.9 Other specified diabetes mellitus without complications (principal); I10 Essential (primary) hypertension; R00.0 Tachycardia, unspecified; R42 Dizziness and giddiness; Z82.49 Family history of ischemic heart disease and other diseases of the circulatory system; Z86.79 Personal history of other diseases of the circulatory system
CPT/HCPCS: 93242

== ENCOUNTER → 2025-03-15 11:00 | Outpatient (CLI) | payer OTHER, SELFPAY ==
[2024-12-05 12:08] VITALS: BMI 38.6
[2025-03-15 12:44] LABS: Add Manual Diff / Slide Review NO; Hematocrit 38.8 % (36-46); Hemoglobin 12.7 g/dL (12.0-16.0); Lymphocytes Absolute Auto 2500 /uL (1100-4500); Mean Corpuscular HGB Conc 32.8 % (30-36); Mean Corpuscular Hemoglobin 26.5 PG (26-34); Mean Corpuscular Volume 80.8 fL (80-100); Platelet Count 324 X10^3/uL (150-400)
[2025-03-15 13:13] LABS: HEMOLYSIS < 15 (0-50); Iron 105 ug/dL (37-170)
[2025-03-15 13:15] LABS: Alanine Aminotransferase 17 IU/L (<35); Albumin 4.0 g/dL (3.5-5.0); Albumin Globulin Ratio 1.4 (1.0-2.8); Alkaline Phosphatase 87 U/L (38-126); Blood Urea Nitrogen 15 mg/dL (7-17); Calcium 9.2 mg/dL (8.4-10.2); Carbon Dioxide 17 mmol/L (22-32); Chloride 105 mmol/L (98-107); Estimated Glomerular Filt Rate > 60 mL/min (>60); Globulin 2.8 g/dL (1.7-4.1); Glucose 135 mg/dL (70-99); HEMOLYSIS < 15 (0-50); Potassium 4.8 mmol/L (3.4-5.1); Sodium 135 mmol/L (137-145); Total Protein 6.8 g/dL (6.3-8.2)
[2025-03-15 13:23] LABS: Percent Iron Saturation 21 % (15-50); Total Iron Binding Capacity 494 ug/dL (265-497); Transferrin 432 mg/dL (206-381)
[2025-03-15 14:50] LABS: Microalbumi Creatinin Ratio Ur 18.0 ug/mg CR (<30)
[2025-03-15 15:01] LABS: Vitamin D 25 Hydroxy (D3) 30.2 ng/mL (30.0-100.0)
== END ==
PROVIDERS: PCP Family Medicine; Referring Provider Family Medicine; Visit Provider Family Medicine
DX: D47.Z2 Castleman disease (principal); N92.0 Excessive and frequent menstruation with regular cycle; D50.9 Iron deficiency anemia, unspecified; E55.9 Vitamin D deficiency, unspecified; K76.0 Fatty (change of) liver, not elsewhere classified; R74.8 Abnormal levels of other serum enzymes; I10 Essential (primary) hypertension; F41.9 Anxiety disorder, unspecified; E13.9 Other specified diabetes mellitus without complications
CPT/HCPCS: 36415; 80053; 82043; 82306; 82570; 83540; 83550; 85025; 85598; 85613; 86038; 86430

== ENCOUNTER → 2025-03-31 08:18 | Outpatient (CLI) | payer OTHER, SELFPAY ==
[2024-12-05 12:08] VITALS: BMI 38.6
--- NOTE | 2025-03-31 14:24 | DI.NM.S_ITS ---
DATE OF SERVICE: 03/31/2025 PROCEDURE: Exercise stress test. INDICATIONS: Hypertension, diabetes mellitus, obesity, history of tobacco use. CARDIAC STRESS: The patient underwent exercise stress test under the supervision of an attending staff. The patient walked on Yury protocol for 3 minutes and 29 seconds, achieved 4.6 METs of workload and maximum heart rate 168, which was 99% of target heart rate. Test was discontinued because of shortness of breath. Resting blood pressure 154/90, peak blood pressure 232/108 suggestive of hypertensive blood pressure response. In recovery, blood pressure decreased to 160/98. Baseline rhythm, sinus. During stress, no convincing ischemic changes. Nonspecific ST-T changes. At peak exercise, the patient has isolated PVCs without any ventricular tachycardia. Normal recovery. In the recovery, the patient has asymmetrical T-wave inversion in anterolateral leads. No chest pain. The patient has significant shortness of breath. CONCLUSION: Exercise stress test did not reveal any obvious convincing ischemic changes. Markedly diminished exercise tolerance with MI positive 53%. No chest pain; however, significant shortness of breath during exercise. Hypertensive blood pressure response. The patient was hypertensive to begin with resting blood pressure 154/80. Frequent PVCs at peak exercise, which got resolved during recovery. Nonspecific ST-T changes in recovery. Correlate clinically and consider repeating exercise stress test with imaging modality like perfusion scan or exercise stress echo after controlling blood pressure. Marilee Dubon - TWIN/rodrigo/JH doc#: [id number]/job#: [id number] dd: 03/31/2025 13:12:00 dt: 03/31/2025 13:57:00 DICTATING /COPIES TO: Barry Weaver MD COPIES MNE: [place];
== END ==
PROVIDERS: PCP Family Medicine; Referring Provider Family Medicine; Visit Provider Family Medicine
DX: I10 Essential (primary) hypertension (principal); R06.02 Shortness of breath; I49.3 Ventricular premature depolarization
CPT/HCPCS: 93017